=== PATIENT | female | born 1965 | race Caucasian/White ===

== ENCOUNTER 2021-03-03 09:47 | Emergency (ER) | payer OTHER, SELFPAY ==
--- NOTE | ~2021-03-03 | CT_ITS ---
EXAMINATION: CT brain wo con INDICATION: Head injury COMPARISON: None TECHNIQUE: Standard unenhanced head CT. The dose-length product (DLP) was 605.33 mGy-cm. The mA was a djusted according to patient size. Iterative reconstruction technique was employed. FINDINGS: There is no intracranial hemorrhage, acute infarction, or abnormal mass lesion. The ventric les are normal. There is no abnormal mass effect or midline shift. The mcrae-white matter differentiat ion is normal. The basal cisterns are patent. The orbits are normal. The paranasal sinuses, mastoids and calvarium are normal. IMPRESSION: 1. No acute intracranial abnormality. Reviewed, dictated and finalized at location A.
--- NOTE | ~2021-03-03 | CT_ITS ---
EXAMINATION: CT cervical spine wo con DATE: 03/03/2021 11:35 INDICATION: Head injury TECHNIQUE: Computed tomography (CT) of the cervical spine was performed without intravenous contrast. The dose-length product (DLP) was 442.12 mGy-cm. Automated exposure control and iterative reconstruc tion technique were employed. COMPARISON: None FINDINGS: There is straightening of the cervical spine which can be positional or due to muscular spa sm. There is no fracture. The odontoid is intact. There is severe loss of intervertebral disc space h eight at L4-5. The vertebral body heights and alignment are normal. There is severe uncovertebral nitza nt osteoarthritis at C4-5. IMPRESSION: 1. Severe spondylosis at C4-5 without acute findings. Reviewed, dictated and finalized at location A.
[2021-03-03 09:52] VITALS: BP 187/100; PULSE 86; RESP 18; TEMP 36.2; O2SAT 96
[2021-03-03 12:30] VITALS: BP 170/96; RESP 16
--- NOTE | 2021-03-03 12:32 | ED.GENADULT ---
HPI - General Adult General Chief complaint: Fall Stated complaint: Headache Time Seen by Provider: 03/03/21 11:11 Source: patient History of Present Illness HPI narrative: Patient is a 55 y/o female complaining of headache since she fell 2 days ago. She describes her pain as an aching sensation and rates it as 5/10. She states that she slipped in a grocery store and fell backwards striking her head. She did not have LOC or vomiting. She had brain fog and blurred vision. She has mild neck pain. She has no focal weakness, numbness or difficulty with walking. She has no back pain, chest pain or abdominal pain. Related Data Allergies Allergy/AdvReac Type Severity Reaction Status Date / Time No Known Allergies Allergy Verified 03/03/21 13:50 Review of Systems Review of Systems: All systems reviewed & are unremarkable except as noted in HPI and below Constitutional: Constitutional: Denies chills, Denies fever(s), Reports headache(s) and Denies weakness Eyes: Eyes: Reports blurry vision ENT: Reports headache(s) and Denies neck pain Cardiovascular: Cardiovascular: Denies chest pain and Denies dyspnea Respiratory: Respiratory: Denies cough and Denies dyspnea Gastrointestinal: Gastrointestinal: Denies abdominal pain, Denies diarrhea, Denies nausea and Denies vomiting Genitourinary: Genitourinary: Denies hematuria and Denies dysuria Musculoskeletal: Musculoskeletal: Denies back pain and Reports neck pain Neurologic: Denies headache(s) and Denies weakness Exam Const: General: no acute distress and well developed Orientation/consciousness: oriented to person, oriented to place, oriented to time and patient oriented x3 HENMT: Head: normocephalic Ears: external ears normal General nose exam: Normal external nose present Eyes: General: appearance normal, both eyes and all related structures Conjunctivae: conjunctivae normal Neck: Neck: normal visual inspection and full ROM Chest: Chest palpation & inspection: normal inspection of the chest and no tenderness Resp: Effort & Inspection: normal respiratory effort Auscultation: clear to auscultation bilaterally Cardio: Rate: regular rate Rhythm: regular rhythm GI: GI Palp: No abdominal tenderness and Yes Soft to palpation Skin: General skin exam: normal color and turgor normal Neuro: General: oriented to person, oriented to place, oriented to time and patient oriented x3 Cranial nerves: Yes CN's II-XII intact bilaterally Cognition (Neuro): normal cognition Speech: normal speech Motor exam (neuro): 5/5 motor strength present throughout Sensory Exam: normal sensation Coordination: [id number] test normal and hbfk-uz-[id number] test normal Extrem: General: normal to inspection, full ROM and no pedal edema Psych: Appearance: grossly normal Mental Status: mental status grossly normal Affect: normal affect Course Reevaluation(s) Reevaluation #1: Rechecked. Informed patient about CT results. Informed patient that her BP is high and instructed her to follow up with PCP for recheck and possibly treatment with medication. Date: 03/03/21 Time: 13:25 Vital Signs Vital signs: Vital Signs Temperature 36.2 C L 03/03/21 09:52 Pulse Rate 86 03/03/21 09:52 Respiratory Rate 18 03/03/21 09:52 Blood Pressure 187/100 H 03/03/21 09:52 Pulse Oximetry 96 03/03/21 09:52 Temperature 36.2 C L 03/03/21 09:52 Pulse Rate 86 03/03/21 09:52 Respiratory Rate 16 03/03/21 12:30 Blood Pressure 199/64 H 03/03/21 13:15 Pulse Oximetry 96 03/03/21 09:52 Medical Decision Making Vital Signs Vital Signs: Vital Signs Temperature 36.2 C L 03/03/21 09:52 Pulse Rate 86 03/03/21 09:52 Respiratory Rate 18 03/03/21 09:52 Blood Pressure 187/100 H 03/03/21 09:52 Pulse Oximetry 96 03/03/21 09:52 Temperature 36.2 C L 03/03/21 09:52 Pulse Rate 86 03/03/21 09:52 Respiratory Rate 16 03/03/21 12:30 Blood Pressure 199/64 H 03/03/21 13:15 Pulse
[2021-03-03 12:45] VITALS: BP 175/97
[2021-03-03 13:00] VITALS: BP 177/83
[2021-03-03 13:15] VITALS: BP 199/64
== END 2021-03-03 13:44 | disposition home or self-care (01) ==
PROVIDERS: Emergency Provider Emergency Medicine; PCP Internal Medicine
DX: S06.0X0A Concussion without loss of consciousness, initial encounter (principal); W01.0XXA Fall on same level from slipping, tripping and stumbling without subsequent striking against object, initial encounter; Y92.512 Supermarket, store or market as the place of occurrence of the external cause
CPT/HCPCS: 70450; 72125; 99284

== ENCOUNTER → 2023-01-01 15:34 | Outpatient (CLI) | payer BC, SELFPAY ==
--- NOTE | ~2023-01-01 | MM_ITS ---
EXAMINATION: MM screening breana BI w lauren HISTORY: Screening mammogram TECHNIQUE: Craniocaudal and mediolateral oblique 3-D tomosynthesis images were obtained and synthetic 2-D images were generated. CAD analysis was submitted and interpreted. COMPARISON: No prior mammogram is available for comparison at this institution. BREAST PARENCHYMAL COMPOSITION: The breasts are almost entirely fatty. FINDINGS: No suspicious mass, calcification, or architectural distortion are identified in either juli ast to suggest malignancy. IMPRESSION: 1. No mammographic evidence of malignancy. 2. Recommend routine screening mammography in one year. BI-RADS Category 1: Negative Reviewed, dictated and finalized at location A.
== END ==
PROVIDERS: PCP Physician Assistant; Visit Provider Physician Assistant
DX: Z12.31 Encounter for screening mammogram for malignant neoplasm of breast (principal)
CPT/HCPCS: 77063; 77067